=== PATIENT | female | born 1975 | race African-American/Black ===

== ENCOUNTER 2020-08-10 09:01 | Emergency (ER) | payer OTHER ==
[~2020-08-10] VITALS: Ht 162.6 cm; Wt 68.2 kg
[2020-08-10 09:08] VITALS: BP 146/79; Ht 162.6 cm; Wt 68.2 kg
[2020-08-10] MEDS ORDERED: AMOXICILLIN875 MG PO (09:39)
[2020-08-10 09:49] LABS: HCG URINE NEGATIVE (NEGATIVE)
[2020-08-10 09:55] LABS: UDS - AMPHET POSITIVE QUAL (NEGATIVE); UDS - BARB NEGATIVE QUAL (NEGATIVE); UDS - BENZO NEGATIVE QUAL (NEGATIVE); UDS - COCAINE NEGATIVE QUAL (NEGATIVE); UDS - OPIATE NEGATIVE QUAL (NEGATIVE); UDS - PCP NEGATIVE QUAL (NEGATIVE); UDS - THC NEGATIVE QUAL (NEGATIVE)
[2020-08-10 09:56] LABS: BASOPHILS 0.5 % (0-2); EOSINOPHILS 2.9 % (0-7); HEMATOCRIT 29.4 % (36.0-48.0); HEMOGLOBIN 9.4 g/dL (12-16); LYMPHOCYTES 21.5 % (15-50); MCH 24.1 pg (26.0-34.0); MCV 75.4 fL (80.0-100.0); MEAN PLATELET VOLUME 9.3 fL (7.4-10.4); MONOCYTES 7.5 % (2-11); NEUTROPHILS 67.6 % (40-80); PLATELET COUNT 324 10x3/uL (130-400); RDW 18.3 % (11.5-14.5); WBC 6.3 10x3/uL (4.8-10.8)
[2020-08-10] MEDS ORDERED: FERROUS GLUCON324 MG PO (10:00)
[2020-08-10 10:04] LABS: CALC OSMOLALITY 278 mosm/kg (275-300); CALCIUM 8.2 mg/dL (8.5-10.1); CARBON DIOXIDE 25.7 mmol/L (21.0-32.0); CHLORIDE - SERUM 103 mmol/L (98-107); CREATININE - SERUM 0.8 mg/dL (0.6-1.3); GLUCOSE 92 mg/dL (74-106); POTASSIUM - SERUM 3.7 mmol/L (3.5-5.1); SODIUM 139 mmol/L (136-145); UREA NITROGEN 16 mg/dL (7-18); eGFR NON AFRICAN AMERICAN 83 mL/min (90-120)
[2020-08-10] MEDS ORDERED: KENALOG 0.1 % 115 GM TOPICAL (10:22)
[2020-08-10 10:34] LABS: % SATURATION 8 % (15-55); IRON 37 ug/dl (35-150); TOTAL IRON BIND CAPACITY 426 ug/dl (260-445); UNSAT IRON BIND CAPACITY 389 ug/dl (150-375)
== END 2020-08-10 10:35 | disposition home or self-care (01) ==
LOC: D.ER 09:01
PROVIDERS: Emergency Medicine
DX: L30.9 Dermatitis, unspecified (principal); K02.9 Dental caries, unspecified; D50.9 Iron deficiency anemia, unspecified